=== PATIENT | male | born 1980 | race Caucasian/White ===

== ENCOUNTER 2017-12-07 11:24 | Emergency (ER) | payer SELFPAY ==
[~2017-12-07] VITALS: Ht 175.3 cm; Wt 96.2 kg
--- NOTE | 2017-12-07 11:38 | ED Lower Extremity ---
General Stated Complaint: R HIP PAIN SHARP PAIN Source: patient Exam Limitations: no limitations History of Present Illness Date Seen by Provider: Dec 07, 2017 Time Seen by Provider: 11:34 Initial Comments To ER with right hip pain that is a dull ache constantly and occasionally a sharp pain. This is been an ongoing issue for about 6 months but it was insignificant at first he ignored it. States he does not have health insurance that he did not see a doctor for this. However the pain has become progressively worse and seems to be worse with internal rotation of the foot. The pain is at the anterior medial aspect of the right hip as he describes it and radiates down to the knee. He denies any known injury. Onset: other Severity: moderate Pain/Injury Location: right hip Method of Injury: unknown Modifying Factors: Worse With Movement Allergies and Home Medications Home Medications Methylprednisolone 4 Mg Tab.ds.pk, 4 MG PO UD Prescribed by: LISA GUPTA on 12/07/17 1217 Patient Home Medication List Home Medication List Reviewed: Yes Constitutional: see HPI EENTM: see HPI Respiratory: no symptoms reported Cardiovascular: no symptoms reported Genitourinary: no symptoms reported Musculoskeletal: no symptoms reported Skin: no symptoms reported Psychiatric/Neurological: No Symptoms Reported Past Kdgxknu-Scnkry-Todpjn Hx Patient Social History Recent Foreign Travel: No Contact w/Someone Who Travel: No Physical Exam Vital Signs Vital Signs - First Documented 12/07/17 11:30 Temp 97.6 Pulse 88 Resp 18 B/P (MAP) 128/84 (99) Pulse Ox 97 Capillary Refill : Height, Weight, BMI Height: '" Weight: lbs. oz. kg; BMI Method: General Appearance: WD/WN, no apparent distress HEENT: PERRL/EOMI, normal ENT inspection Neck: non-tender, full range of motion Respiratory: no respiratory distress, no accessory muscle use Hips: right hip pain Legs: bilateral leg non-tender, bilateral leg normal inspection, bilateral leg normal range of motion Knees: bilateral knee non-tender, bilateral knee normal inspection, bilateral knee normal range of motion Ankles: bilateral ankle non-tender, bilateral ankle normal inspection, bilateral ankle normal range of motion Feet: bilateral foot non-tender, bilateral foot normal inspection, bilateral foot normal range of motion Neurologic/Psychiatric: alert, normal mood/affect, oriented x 3 Skin: normal color, warm/dry Progress/Results/Core Measures Results/Orders My Orders Orders - LISA GUPTA APRN Hip, Right, 2 Views (12/07/17 11:34) Vital Signs/I&O 12/07/17 11:30 Temp 97.6 Pulse 88 Resp 18 B/P (MAP) 128/84 (99) Pulse Ox 97 Diagnostic Imaging Diagonstic Imaging: Xray Comments NAME: [facility] REC#: [id number] PT STATUS: REG ER : 1980 PHYSICIAN: LISA GUPTA APRN ADMIT DATE: 12/07/17/ER Draft Date of Exam:12/07/17 HIP, RIGHT, 2 VIEWS INDICATION: Right hip pain. TIME OF EXAM: 12:40 p.m. FINDINGS: Two views of the right hip demonstrate normal femoroacetabular alignment. The joint space is well maintained. The femoral head and neck are intact. No fractures are seen. IMPRESSION: No acute bony abnormality is detected. Dictated on workstation # [id number] Dict: 12/07/17 1209 Trans: 12/07/17 1214 [id number] Interpreted by: MARIE OTOOLE MD Electronically signed by: Departure Impression Primary Impression: Right hip pain Disposition: 01 HOME, SELF-CARE Condition: Stable Departure-Patient Inst. Decision time for Depature: 11:37 Referrals: NO,LOCAL PHYSICIAN (PCP) Primary Care Physician ADDISON MOYA DO Patient Instructions: Hip Pain, Hip Pointer Add. Discharge Instructions: 1. If You do not have insurance, [facility] does not require insurance to be seen. Call today to make an appointment for further evaluation which will likely include an MRI of the hip symptoms fail to improve. Scripts Methylprednisolone (Medrol) 4 Mg Tab.ds.pk 4 MG PO UD, #1 PKG Prov: LISA GUPTA APRN 12/07/17 Work/School Note: Work Release Form Date Seen in the Emergency Department: Dec 07, 2017 Return to Work: Dec 08, 2017 LISA GUPTA APRN Dec 07, 2017 11:38
--- NOTE | 2017-12-07 12:14 | Diagnostic Imaging Report ---
INDICATION: Right hip pain. TIME OF EXAM: 12:40 p.m. FINDINGS: Two views of the right hip demonstrate normal femoroacetabular alignment. The joint space is well maintained. The femoral head and neck are intact. No fractures are seen. IMPRESSION: No acute bony abnormality is detected. Dictated by: Dictated on workstation # [id number]
[2017-12-07] MEDS ORDERED: METH4TAB PO (12:17)
[2017-12-07 12:20] VITALS: BP 128/84
== END 2017-12-07 12:25 | disposition home or self-care (01) ==
LOC: ER 11:27
DX: M25.551 Pain in right hip (principal); Z79.52 Long term (current) use of systemic steroids
CPT/HCPCS: 73502

== ENCOUNTER → 2018-09-16 | Emergency (ER) | payer SELFPAY | LOC: ER 14:50 ==